=== PATIENT | female | born 1965 | race Caucasian/White ===

== ENCOUNTER 2023-01-24 10:16 | Outpatient (CLI) | payer OTHER, SELFPAY ==
--- NOTE | ~2023-01-24 | XR_ITS ---
EXAMINATION: XR knee LT 3V DATE: 01/24/2023 10:43 INDICATION: Left knee pain and swelling. TECHNIQUE: 3 views of left knee standing were obtained. COMPARISON: None. FINDINGS: There is a total left knee arthroplasty with patellar resurfacing in near-anatomic alignmen t. No fracture. No periprosthetic lucency to suggest loosening or infection. There is a moderate-size d knee joint effusion. IMPRESSION: 1. Total left knee arthroplasty in near-anatomic alignment. 2. Moderate-sized left knee joint effusion. Reviewed, dictated and finalized at location A.
== END 2023-01-24 10:17 | disposition home or self-care (01) ==
LOC: ANHIMG 10:22
PROVIDERS: PCP Physician Assistant; Visit Provider Physician Assistant
DX: M25.462 Effusion, left knee (principal)
CPT/HCPCS: 73562

== ENCOUNTER 2025-05-23 02:14 | Emergency (ER) | payer OTHER, SELFPAY ==
[2025-05-23] VITALS (19 sets, daily range): BP systolic 113–159; BP diastolic 78–97; PULSE 61–80; RESP 8–20; TEMP 36.4; O2SAT 94–100
--- NOTE | ~2025-05-23 | XR_ITS ---
EXAMINATION: XR chest 1V portable 05/23/2025 05:20 INDICATION: Hypoxia with sleep PROCEDURE: AP portable chest COMPARISON: No prior studies for comparison. FINDINGS: The lungs are clear. The cardiomediastinal silhouette is within normal limits. There are no pleural effusions. There is no pneumothorax suspected. There are calcified granulomas of the lef t lung. IMPRESSION: 1: NO ACUTE CARDIOPULMONARY DISEASE. Reviewed, dictated and finalized at location A.
[2025-05-23] MEDS: LACTATED RINGERS 1,000 ML 999 ML IV CONT (02:36)
[2025-05-23] MEDS: ONDANSETRON INJ 4 MG/2 ML VIAL IV PUSH (02:36)
[2025-05-23] MEDS: Please add drug allergy info to patient profile. 1 EACH XX (02:36)
[2025-05-23 02:44] LABS: Hematocrit 39.8 % (37.0-47.0); Hemoglobin 13.2 g/dL (12.0-15.0); Immature Granulocyte Percent A 0.2 % (0-0.5); Lymphocytes Absolute Auto 3.09 K/mm3 (0.9-3.2); Mean Corpuscular HGB Conc 33.2 g/dl (32-36); Mean Corpuscular Hemoglobin 30.8 pg (26-34); Mean Corpuscular Volume 93.0 fl (80-100); Nucleated Red Blood Cells Absolute Auto 0.000 K/mm3 (0.0-0.012); Nucleated Red Blood Cells Perc 0.0 % (0.0-0.2); Platelet Count Result 365 k/mm3 (150-375); Red Blood Count 4.28 M/mm3 (4.2-5.4); White Blood Count 8.6 K/mm3 (4.5-10.0)
[2025-05-23 02:57] LABS: Alanine Aminotransferase 27 U/L (6-35); Albumin Level 4.6 g/dL (3.5-5.1); Alkaline Phosphatase 84 U/L (38-126); Anion Gap 12 mmol/L (4-12); Aspartate Amino Transferase 36 U/L (14-36); Bilirubin,Total 0.4 mg/dL (0.2-1.3); Blood Urea Nitrogen 16 mg/dL (7-17); Calcium 9.7 mg/dL (8.4-10.2); Carbon Dioxide 19 mmol/L (22-30); Chloride 104 mmol/L (98-107); Estimated CRCL calculation 74 ml/min; Estimated Glomerular Filt Rate > 60; Glucose 105 mg/dL (65-110); Lipase 92 U/L (23-300); Potassium 3.9 mmol/L (3.4-5.0); Sodium 135 mmol/L (137-145); Total Protein 7.6 g/dL (6.3-8.2)
[2025-05-23 04:21] LABS: Add Urine Microscopic? YES; Appearance Urine Clear (Clear); Glucose Urine UA Negative (Negative); Leukocyte Esterase Ur Negative LEU/UL (Negative); Nitrate Urine Negative (Negative); Non Pathogenic Casts 0-2; Specific Grav Ur 1.012 (1.001-1.035)
--- OUTSIDE RECORDS SUMMARY | 2025-05-23 04:37 | XMS_ITS | Clinical Summary ---
Author Organization [facility] Address [address] [place] [address] Care Team Providers Care Dermatology Procedural Physician Name Role Phone Hafsa Madera PA-C Primary Care Provider [phone] Source Comments [facility],non-owned Affiliates and Associated Physician Practices is amultiple site organization consisting of ambulatory clinics and hospital sitesin [place], [place], [place] and [place]. This disclosure is being madepursuant to the Care Everywhere program and may not contain all information available regarding this patient. Last updated 18.[facility] Social History Tobacco Use Types Packs/Day Years Used Date Smoking Tobacco: Never Assessed Comments Unknown Sex and Gender Information Value Date Recorded Sex Assigned at Female 03/13/2023 10:12 AM CDT Legal Sex Female 10:09 AM CDT Gender Identity Female 03/13/2023 10:12 AM CDT Sexual Orientation Straight 03/13/2023 10 :12 AM CDT Plan of Treatment Health Maintenance Due Date Last Done Comments COLOGUARD (AGES 45-75) - COL ON CA SCREENING 1967 COLON MONITORING 1967 COLONOSCOPY - COLON CA SCREENING 1967 CT COLONOGRAPHY - COLON CA SCREENING 1967 Colorectal Cancer Screening 1967 FIT - COLON CA SCREENING 1967 FLEX SIG - COLON CA SCREENING 1967 LIPID TESTING 1967 MAMMOGRAM 1967 HIV SCREENING 1982 HEPATITIS C SCREENING 01/22/1985 DTAP/TDAP/TD VACCINES (1 - Tdap) 1986 HEPATITIS B VACCINE (1 of 3 - 19+ 3-dose series) 1986 PAP SMEAR 01/28/1988 PNEUMOCOCCAL VACCINE 50+ (1 of 1 - PCV) 2017 ZOSTER VACCINE (1 of 2) 2017 COVID-19 VACCINE (2023-2 5 season) 2024 DEPRESSION SCREENING 10/20/2024 INFLUENZA VACCINE (#1) 2025 HIB VACCINE Aged Out No longer eligi ble based on patient's age to complete this topic HPV VACCINE Aged Out No longer eligi ble based on patient's age to complete this topic MENINGOCOCCAL (Group B) VACC INE SHARED DECISION-MAKING Aged Out No longer eligibl e based on patient's age to complete this topic MENINGOCOCCAL GROUPS A/C/Y/W VACCINE Aged Out No longer eligible b ased on patient's age to complete this topic Insurance [facility] Care Teams Dermatology Procedural Physician Relationship Specialty Start Date End Date Hafsa Madera PA-C [address] [place] [phone] PCP - General 08/19/23
--- OUTSIDE RECORDS SUMMARY | 2025-05-23 04:37 | XMS_ITS | Continuity of Care Document ---
Author Organization [facility] Address [address] [place] [phone] Phone Care Team Providers Care Energy Auditor Name Role Phone Kun SMITHErasmoen Unavailable Unavailable Allergies, Adverse Reactions, Alerts Substance Reaction Status Criticality Sulfa (Sulfonamide Antibiotics) Active No Information Advance Directives Directive Yes / No Effective Date File Name No Information Encounters Encounter Description Practice Location Reason(s) For Visit Diagnoses Date Provider Providers Copied on Encounter [facility], [facility] [place], [place], [id number] , tel: [phone] [facility] Location Encounter for examination of eyes and vision with abnormal findingsAge-related nuclear cataract, bilateralPresbyopiaOt her chorioretinal scars, right eyeHypermetropia, bilateral Oct-2 1 Kun Michael. [address] [place], [facility], [place]. tel: [phone] [facility], [address] [place] [address], [id number] , tel: [phone] [facility] Location PresbyopiaEncounter for examination of eyes and vision with abnormal findings Oct-1 -201 9 RCM Rendering . [address] [place] [address], [id number], [place]. tel: [phone] Family History Family Member Type Diagnosis Age At Onset Problem (finding) Fhx of cataract Mother Problem (finding) Fhx of glaucoma Payers Payer name Insurance type Covered alliance party ID Authoriza tion(s) No Information Social History Type Description Quantity Date Captured Comments Alcohol Use Details Unknown Caffeine Use Details Unknown Tobacco Use Status Never smoker (Never Smoked) Smoking Status Never smoker (Never Smoked) Non-Smoking Tobacco Use Details : No Details Available : No Details Available Sex Female Chief Complaint And Reason For Visit No Information Reason For Referral Reason For Referral No Information History Of Present Illness Encounter Date Complaint History Of Prese nt Illness No Information Functional Status Date Functional Assessmen t No Information Instructions Date Instruction Additional Infor berto Impression/Plan Related to Routi ne examination with abnormal findings. Impression/Plan Related to [place] revealed cataract. Impression/Plan Related to [place] revealed a retinal scar. Impression/Plan Related to Refra ctive testing reveals hyperopia (farsightedness). Impression/Plan Related to Refra ctive testing reveals [...]
--- NOTE | 2025-05-23 04:38 | ED.ALCOHOL ---
HPI - Alcohol General Chief Complaint: Alcohol Stated Complaint: N/V; ETOH+ Time Seen by Provider: 05/23/25 04:25 Source: patient, EMS and RN notes reviewed Mode of arrival: EMS Limitations: no limitations History of Present Illness HPI narrative: Patient presents with nausea, 3 episodes of nonbloody emesis, dizziness. The symptoms started after drinking alcohol. She reports drinking from approximately 7:00 p.m. to 11:00 p.m. while out at [facility]. She believes she had 3 total room in cranberry juice drinks and possibly a Tequila shot. Patient does not drink regularly and has been awhile. Reports that it is possible that she was already a bit dehydrated she been out mowing her lawn earlier in the day and possibly not staying hydrated enough however she used to live in [place]. Patient reports that she started to feel some her symptoms she was still at the [facility] location and the poultry dressing worker gave her some water and chips. She later vomited these up in her toilet. She states that usually if she got sick after drinking she would drop in feel better but she did not feel better after vomiting and thus presented. Patient was given IV fluids and Zofran arrival emergency department and the time of my assessment she states she is feeling better now. Was noted that she became hypoxic while sleeping, desaturating to the mid 60s by report from RN. Patient denies any chest pain or shortness of breath. She states that she smoked for 18 years but quit 22 years ago. Has a primary care provider, Rae Madera. Related Data Allergies Allergy/AdvReac Type Severity Reaction Status Date / Time Sulfa (Sulfonamide Allergy Mild Rash Verified 05/23/25 02:35 Antibiotics) PMFSH Past Medical History Medical History Bipolar disorder, unspecified Anxiety Social History Social History Social History: Previously lived in [place] Years smoked: 18 Smoking status: Former smoker Smoking end date: 10/20/02 Alcohol intake: current Alcohol use details: occasional Exam Narrative: GENERAL: Well-appearing, well-nourished, and in no acute distress. HEAD: Normocephalic, atraumatic. EYES: Non injected, non icteric ENT: Nares clear, no rhinorrhea or epistaxis. Gross auditory acuity intact. NECK: Supple. No meningismus. CHEST: Speaking in full sentences. No respiratory distress. Lungs clear to auscultation bilaterally without appreciable wheezes. Not diminished. Nonlabored. HEART: Regular rate and rhythm. . ABDOMEN: Soft, nondistended. No rigidity or guarding. Not peritoneal EXTREMITIES: Normal range of motion. No lower extremity edema. SKIN: Warm, dry, no rash. NEURO: No focal deficits. Alert and oriented. Answering questions. Following commands. Normal speech without aphasia or dysarthria. PSYCH: Normal mood and affect. Course Vital Signs Vital signs: Vital Signs Temperature 97.6 F 05/23/25 02:15 Pulse Rate 70 05/23/25 02:15 Respiratory Rate 18 05/23/25 02:15 Blood Pressure 159/97 H 05/23/25 02:15 Pulse Oximetry 100 05/23/25 02:15 Oxygen Delivery Room Air 05/23/25 02:15 Temperature 97.6 F 05/23/25 02:15 Pulse Rate 66 05/23/25 05:38 Respiratory Rate 13 05/23/25 05:38 Blood Pressure 119/82 05/23/25 05:38 Pulse Oximetry 94 05/23/25 05:38 Oxygen Delivery Room Air 05/23/25 02:15 MDM - Alcohol MDM Narrative Medical decision making narrative: Patient presents with symptoms nausea and 3 episodes of nonbloody emesis and feeling dizzy. Symptoms occurred after she had been drinking alcohol. She reports that she had at least 3 rum drinks and possibly a Tequila shot. Only drinks occasionally. Notes that previously if she or feeling symptomatic after drinking she would throw up and feel better but this did happen while at home. In the emergency department she is afebrile with vital signs initially notable for hypertension although resolved on reassessment. RN had requested IV fluids and Zofran based on their assessment which I approved before I was able to evaluate patient. At that time she is now asymptomatic. Microscopic hematuria on urinalysis but otherwise without signs of infection. Ethanol level 132. This makes legal sobriety approximately 4:30 a.m.. UDS negative. She is able to be titrated off oxygen and maintains saturation while awake, desaturates when she sleeps. Ortho stats are reviewed and appropriate. Patient is otherwise stable for discharge. I did advise that she follow-up with her primary care physician regarding possible sleep study and or possibly PFTs given her history smoking although no appreciable wheezes on exam today to suggest new diagnosis of COPD. Differential Diagnosis Differential diagnosis: Likely alcohol intoxication (w/ side effect), alcohol ketoacidosis and other (gastritis, dehydration) Lab Data Attestation: I reviewed the patient's lab results. Lab results narrative: Lipase normal CBC unremarkable 05/23/25 02:33 05/23/25 02:33 Labs: Lab Results 05/23/25 05/23/25 Range/Units 02:33 04:07 WBC 8.6 (4.5-10.0) K/mm3 RBC 4.28 (4.2-5.4) M/mm3 Hgb 13.2 (12.0-15.0) g/dL Hct 39.8 (37.0-47.0) % MCV 93.0 (80-100) fl MCH 30.8 (26-34) pg MCHC 33.2 (32-36) g/dl RDW 11.7 (11.5-14.5) % Plt Count 365 (150-375) k/mm3 MPV 9.5 (7.4-10.4) fl Immature Gran % (Auto) 0.2 (0-0.5) % Neut % (Auto) 56.0 (45.5-73.1) % Lymph % (Auto) 36.1 (18.3-44.2) % [place] % (Auto) 6.7 (2.6-8.5) % Eos % (Auto) 0.2 (0-4.4) % Baso % (Auto) 0.8 (0.2-1.2) % Lymph # (Auto) 3.09 (0.9-3.2) K/mm3 [place] # (Auto) 0.6 (0.1-0.6) K/mm3 Eos # (Auto) 0.0 (0-0.3) K/mm3 Baso # (Auto) 0.1 (0.0-0.1) K/mm3 Abs Immat Gran (auto) 0.02 (0.00-0.031) K/mm3 Absolute Neuts (auto) 4.8 (1.3-6.7) K/mm3 Absolute Nucleated RBC 0.000 (0.0-0.012) K/mm3 Nucleated RBC % 0.0 (0.0-0.2) % Sodium 135 L (137-145) mmol/L Potassium 3.9 (3.4-5.0) mmol/L Chloride 104 (98-107) mmol/L Carbon Dioxide 19 L (22-30) mmol/L Anion Gap 12 (4-12) mmol/L BUN 16 (7-17) mg/dL Creatinine 0.72 (0.7-1.0) mg/dL Estim Creat Clear Calc 74 ml/min Estimated GFR > 60 (59 - ) Glucose 105 (65-110) mg/dL Calcium 9.7 (8.4-10.2) mg/dL Total Bilirubin 0.4 (0.2-1.3) mg/dL AST 36 (14-36) U/L ALT 27 (6-35) U/L Alkaline Phosphatase 84 (38-126) U/L Total Protein 7.6 (6.3-8.2) g/dL Albumin 4.6 (3.5-5.1) g/dL Lipase 92 (23-300) U/L Urine Color Yellow (Yellow) Urine Appearance Clear (Clear) Urine pH 8.0 (5.0-9.0) Ur Specific [place] 1.012 (1.001-1.035) Urine Protein Negative (Negative) mg/dL Urine Glucose (UA) Negative (Negative) mg/dL Urine Ketones Negative (Negative) mg/dL Ur Blood (Man) Trace (Negative) Urine Nitrate Negative (Negative) Urine Bilirubin Negative (Negative) Urine Urobilinogen 0.2 (<2.0) mg/dL Leukocyte Esterase Rfl Negative (Negative) RAFAELA/UL Urine RBC 3-5 H (0-2) /hpf Urine WBC 0-5 (0-3) /hpf Ur Squamous Epith Cells None seen (Few) /hpf Urine Bacteria None seen /hpf Urine Casts 0-2 Urine Opiates Screen Negative (Negative) Urine Methadone Screen Negative (Negative) Ur Barbiturates Screen Negative (Negative) Ur Phencyclidine Scrn Negative (Negative) Ur Amphetamine Screen Negative (Negative) U Benzodiazepines Scrn Negative (Negative) Urine Cocaine Screen Negative (Negative) U Cannabinoids Screen Negative (Negative) Ethyl Alcohol 132 (<10) mg/dL Imaging Data Attestation: I personally reviewed and interpreted this imaging study as follows: My impression: Hyperinflated lungs on my independent interpretation of chest x-ray Radiologist's impression: ITS Impressions Chest X-Ray 05/23/25 05:42 IMPRESSION: 1: NO ACUTE CARDIOPULMONARY DISEASE. ECG Data EKG #1: Attestation: I personally reviewed and interpreted this ECG as follows: ECG completion date: 05/23/25 ECG completion time: 05:11 Interpretation: Normal sinus rhythm at a rate of 63 beats per minute. WV interval 172. QRS 93. QT/QTC 447/459. Good R-wave progression across the precordial leads. No T-wave inversions. Normal axis. Normal EKG. Discharge Plan Discharge Clinical Impression: Alcoholic intoxication, Nausea, Microscopic hematuria, Hypoxia, sleep related Patient Disposition: Home Condition: Stable Instructions: Antibiotic Form, Alcohol Intoxication (DC), Acute Nausea and Vomiting (DC), Hypoxia (ED) Additional Instructions: Reassured that you are feeling better in your workup was generally without significant abnormalities. If she continues to be nauseated or have vomiting today, you can use the oral disintegrating tablets of Zofran. Rest and maintain your hydration. Follow-up with your primary care provider, especially given that it was noted that your oxygen saturation went down while you are sleeping. You may benefit from undergoing PFTs (pulmonary function test) given your previous history of smoking versus sleep study to evaluate for sleep apnea. Return to the emergency department any new or worsening symptoms. Patient Language: Macanese Prescriptions: New ondansetron 4 mg tablet,disintegrating 4 mg PO Q8H PRN (Reason: nausea and vomiting) Qty: 7 0RF Follow-up/Referrals: Santy,SARA Pereyra [Primary Care Provider] - Stand Alone Forms: Work/School Release IP Time of Disposition: 05:49
[2025-05-23 04:40] LABS: Cannabinoid Screen Urine Negative (Negative)
--- NOTE | 2025-05-23 04:55 | ECG_ITS ---
Test Date: 2025-05-23 05:11:04 Measurements Intervals [place] Rate: 63 P: 73 WV: 172 QRS: 73 QRSD: 93 T: 62 QT: 447 QTc: 459 Interpretive Statements SINUS RHYTHM MINIMAL Q WAVES- INF/LAT LEADS BASELINE ARTIFACT- I, AVR, AVL BORDERLINE ECG No previous ECG available for comparison Electronically Signed On 05-23-2025 06:27:43 CDT by Gomez Owens D.O.
== END 2025-05-23 06:08 | disposition home or self-care (01) ==
PROVIDERS: Emergency Provider Student in an Organized Health Care Education/Training Program; PCP Physician Assistant
DX: R31.21 Asymptomatic microscopic hematuria (principal); R11.0 Nausea; G47.34 Idiopathic sleep related nonobstructive alveolar hypoventilation; F10.129 Alcohol abuse with intoxication, unspecified; Y90.6 Blood alcohol level of 120-199 mg/100 ml; F31.9 Bipolar disorder, unspecified; F41.9 Anxiety disorder, unspecified
CPT/HCPCS: 36415; 71045; 80053; 80307; 81001; 82077; 83690; 85025; 93005; 96361; 96374; 99284; J2405; J7120

== ENCOUNTER 2025-10-02 15:54 | Emergency (ER) | payer OTHER, SELFPAY ==
--- OUTSIDE RECORDS SUMMARY | 2022-10-18 05:18 | XMS_ITS | Continuity of Care Document ---
Author Organization [facility] Address [address] [place] [phone] Phone Care Team Providers Care Tariff Clerk Name Role Phone RCM, Rendering Unavailable Unavailable Allergies, Adverse Reactions, Alerts Substance Reaction Status Criticality Sulfa (Sulfonamide Antibiotics) Active No Information Advance Directives Directive Yes / No Effective Date File Name No Information Encounters Encounter Description Practice Location Reason(s) For Visit Diagnoses Date Provider Providers Copied on Encounter [facility], [address] [place] [address], [id number] , tel: [phone] [facility] Location No Information Dec-3 0 2 RCM Rendering . [address] [place] [address], [id number], [place]. tel: [phone] [facility], [address] [place] [address], [id number] , [place] tel: [phone] [facility] Location Encounter for examination of eyes and vision with abnormal findingsAge-related nuclear cataract, bilateralPresbyopiaOt her chorioretinal scars, right eyeHypermetropia, bilateral Oct-2 - 1 Kun Michael. [address] [place], [address], [place]. tel: [phone] [facility], [address] [place] [address], [id number] , [place] tel: [phone] [facility] Location PresbyopiaEncounter for examination of eyes and vision with abnormal findings Oct-1 -201 9 RCM Rendering . [address] [place] [address], [id number], [place]. tel: [phone] Family History Family Member Type Diagnosis Age At Onset Problem (finding) Fhx of cataract Mother Problem (finding) Fhx of glaucoma Payers Payer name Insurance type Covered green party ID Authoriza tion(s) No Information Social History Type Description Quantity Date Captured Comments Sex Female Smoking Status No Information Chief Complaint And Reason For Visit No Information Reason For Referral Reason For Referral No Information History Of Present Illness Encounter Date Complaint History Of Prese nt Illness No Information Functional Status Date Functional Assessmen t No Information Instructions Date Instruction Additional Infor mation Oct- Impression/Plan Related to Routi ne examination with abnormal findings. Oct- Impression/Plan Related to [place] revealed cataract. Jul- Impression/Plan Related to [place] revealed a retinal scar. Jul- Impression/Plan Related to Refra ctive testing reveals hyperopia (farsightedness). Jul- Impression/Plan Related to Refra ctive testing reveals presbyopia. Impression/Plan Related to Locat ion 1: OD\nLocation 2: OS\nPriority: 3 Impression/Plan Related to Locat ion 1: OD\nLocation 2: OS\nPriority: 2 Impression/Plan Related to Locat ion 1: RUL\nLocation 2: LANDRY\nPriority: 3 Impression/Plan Related to Locat ion 1: OD\nLocation 2: OS\nPriority: 3 \nSeverity 1: 2 \nSeverity 2: 2 Assessments Type Assessment Date No Information Patient Care Teams Name Effective Dates (start - stop) Status Members No Information
--- NOTE | ~2025-10-02 | XR_ITS ---
EXAMINATION: XR chest 2V, 10/02/2025 17:17 [employer] HISTORY: productive cough X 1WEEK COMPARISON: No comparisons available. Technique: 2 views obtained. Findings: The lungs are clear, no effusion. No pneumothorax. Heart is normal size. Mediastinal and hilar contours are within normal limits. Bony thorax no acute abnormality. Impression: No acute cardiopulmonary abnormality. Reviewed, dictated and finalized at location P. 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
[2025-10-02 15:55] VITALS: BP 167/96; PULSE 66; RESP 20; TEMP 36.6; O2SAT 93
--- OUTSIDE RECORDS SUMMARY | 2025-10-02 15:56 | XMS_ITS | Clinical Summary ---
Author Organization [facility] Address [address] [place] [address] Care Team Providers Care Music Instructor Name Role Phone Hafsa Madera PA-C Primary Care Provider Source Comments [facility],non-owned Affiliates and Associated Physician Practices is amultiple site organization consisting of ambulatory clinics and hospital sitesin [place], [place], [place] and [place]. This disclosure is being madepursuant to the Care Everywhere program and may not contain all information available regarding this patient. Last updated 18.[facility] Social History Tobacco Use Types Packs/Day Years [...] 2017 ZOSTER VACCINE (1 of 2) 2017 DEPRESSION SCREENING 10/20/2024 COVID-19 VACCINE (1 - 2024-2 6 season) 2025 INFLUENZA VACCINE (#1) 2025 HIB VACCINE Aged [...] patient's age to complete this topic Insurance [facility] Care Teams Music Instructor Relationship Specialty Start Date End Date Hafsa Madera PA-C [address] [place] [phone] PCP - General 08/19/23
--- NOTE | 2025-10-02 17:01 | ED_ITS ---
HPI - General Adult General Chief complaint: Upper Respiratory Infection Stated complaint: sick for 3 weeks, chest congestion Time Seen by Provider: 10/02/25 16:01 History of Present Illness HPI narrative: 60-year-old female presenting with concerns for URI for three weeks. She states her symptoms started as a runny nose then it progressed to sinus congestion and headaches and now she is reporting that it has gone to her chest. Present symptoms include a productive cough with green sputum, dysphagia, and hoarseness. She states that she does not feel short of breath but that sometimes she struggles to take a deep breath because she is coughing so much. Denies fevers/chills, abdominal pain, or nausea/vomiting/diarrhea. Denies history of smoking or COPD/asthma. Related Data Allergies Allergy/AdvReac Type Severity Reaction Status Date / Time Sulfa (Sulfonamide Allergy Mild Rash Verified 05/23/25 02:35 Antibiotics) Review of Systems 2 Review of Systems: All systems reviewed & are unremarkable except as noted in HPI and below PMFSH Past Medical History Medical History Bipolar disorder, unspecified Anxiety Social History Social History Social History: Previously lived in [place] Years smoked: 18 Smoking status: Former smoker Smoking end date: 10/20/02 Alcohol intake: current Alcohol use details: occasional Exam 2 Narrative: GENERAL: No acute distress. Voice hoarseness.Cough. HEAD: Normocephalic, atraumatic. EYES: PERRLA and EOMI. ENT: Nares clear, no rhinorrhea or epistaxis. Mucous membranes moist. Oropharynx without tonsillar hypertrophy exudate or other lesions. Bilateral TMs pearly schmidt non-bulging NECK: Supple. No adenopathy or masses. No carotid bruits or JVD CHEST: Clear to auscultation. No respiratory distress. No wheezes rales or rhonchi HEART: Regular rate and rhythm. No murmur heard. Normal peripheral pulses. ABDOMEN: Soft, nontender, nondistended, normal active bowel sounds. EXTREMITIES: Normal range of motion. No edema. SKIN: Warm, dry, no rash. NEURO: No focal deficits. Alert and oriented x3. PSYCH: Normal mood and affect Course Vital Signs Vital signs: Vital Signs Temperature 97.8 F 10/02/25 15:55 Pulse Rate 66 10/02/25 15:55 Respiratory Rate 20 10/02/25 15:55 Blood Pressure 167/96 H 10/02/25 15:55 Pulse Oximetry 93 10/02/25 15:55 Oxygen Delivery Room Air 10/02/25 15:55 Temperature 97.8 F 10/02/25 15:55 Pulse Rate 66 10/02/25 15:55 Respiratory Rate 20 10/02/25 15:55 Blood Pressure 167/96 H 10/02/25 15:55 Pulse Oximetry 93 10/02/25 15:55 Oxygen Delivery Room Air 10/02/25 15:55 MDM MDM Narrative Medical decision making narrative: 60-year-old female presenting with concerns for URI for three weeks. She states her symptoms started as a runny nose then it progressed to sinus congestion and headaches and now she is reporting that it has gone to her chest. Present symptoms include a productive cough with green sputum, dysphagia, and hoarseness. She states that she does not feel short of breath but that sometimes she struggles to take a deep breath because she is coughing so much. Denies fevers/chills, abdominal pain, or nausea/vomiting/diarrhea. Denies history of smoking or COPD/asthma. Upon my initial assessment patient appears nontoxic with stable vitals. Lab work is unremarkable. COVID, flu, RSV negative. CXR without acute abnormalities. Due to the duration of patient's symptoms and productive cough with green sputum will plan to treat for uncomplicated pneumonia outpatient. Administered Tylenol. Patient notes that Tylenol never works for her. Patient agrees with discussion and after shared medical decision making agrees with plan of care. All questions were answered to the patient's satisfaction. The patient is appropriate for outpatient treatment and follow-up. Given reasons to return. Differential Diagnosis Differential Diagnosis: Differential diagnostic considerations for upper respiratory infection include upper respiratory infection, croup, otitis media, sinusitis, viral infection, bronchitis, influenza, pharyngitis, strep, uvulitis. Medical Records I have reviewed the following patient records and this information was taken into consideration when formulating the assessment and plan.: previous labs and previous ER visits Lab Data MDM Lab Attestation statement: I personally reviewed the patient's lab results. 10/02/25 16:59 10/02/25 16:59 Labs: Lab Results 10/02/25 Range/Units 16:59 WBC 9.4 (4.5-10.0) K/mm3 RBC 4.29 (4.2-5.4) M/mm3 Hgb 13.4 (12.0-15.0) g/dL Hct 39.9 (37.0-47.0) % MCV 93.0 (80-100) fl MCH 31.2 (26-34) pg MCHC 33.6 (32-36) g/dl RDW 11.6 (11.5-14.5) % Plt Count 380 H (150-375) k/mm3 MPV 9.3 (7.4-10.4) fl Immature Gran % (Auto) 0.4 (0-0.5) % Neut % (Auto) 49.8 (45.5-73.1) % Lymph % (Auto) 38.1 (18.3-44.2) % Baldwin % (Auto) 8.9 H (2.6-8.5) % Eos % (Auto) 2.1 (0-4.4) % Baso % (Auto) 0.7 (0.2-1.2) % Lymph # (Auto) 3.60 H (0.9-3.2) K/mm3 Baldwin # (Auto) 0.8 H (0.1-0.6) K/mm3 Eos # (Auto) 0.2 (0-0.3) K/mm3 Baso # (Auto) 0.1 (0.0-0.1) K/mm3 Abs Immat Gran (auto) 0.04 H (0.00-0.031) K/mm3 Absolute Neuts (auto) 4.7 (1.3-6.7) K/mm3 Absolute Nucleated RBC 0.000 (0.0-0.012) K/mm3 Nucleated RBC % 0.0 (0.0-0.2) % Sodium 136 L (137-145) mmol/L Potassium 3.6 (3.4-5.0) mmol/L Chloride 107 (98-107) mmol/L Carbon Dioxide 26 (22-30) mmol/L Anion Gap 3 L (4-12) mmol/L BUN 13 (7-17) mg/dL Creatinine 0.63 L (0.7-1.0) mg/dL Estim Creat Clear Calc 84 ml/min Estimated GFR > 60 (59 - ) Glucose 97 (65-110) mg/dL Calcium 9.2 (8.4-10.2) mg/dL Total Bilirubin 0.4 (0.2-1.3) mg/dL AST 26 (14-36) U/L ALT 20 (6-35) U/L Alkaline Phosphatase 106 (38-126) U/L Total Protein 7.4 (6.3-8.2) g/dL Albumin 4.0 (3.5-5.1) g/dL Influenza A (RT-PCR) Negative (Negative) Influenza B (RT-PCR) Negative (Negative) RSV (RT-PCR) Negative (Negative) SARS-CoV-2 RNA (RT-PCR) Negative (Negative) Imaging Data Attestation: I personally reviewed and interpreted this imaging study as follows: Radiologist's impression: ITS Impressions Chest X-Ray 10/02/25 17:27 Impression: No acute cardiopulmonary abnormality. Discharge Plan Discharge Clinical Impression: Upper respiratory infection, Pneumonia Patient Disposition: Home Condition: Stable Instructions: Antibiotic Form, Bacterial Pneumonia (ED), Cold Symptoms (ED) Additional Instructions: Return to the emergency department for worsening symptoms or any other concerns Remain well-hydrated and get plenty of rest. Take Tylenol or Motrin [id number] for pain as needed. Flonase for nasal congestion. Zyrtec for runny nose. Lozenges or Chloraseptic spray for sore throat. Take antibiotics as prescribed. Follow up with primary care doctor Patient Language: Cuban Prescriptions: New amoxicillin 500 mg tablet 500 mg PO TID Qty: 21 0RF No Action ondansetron 4 mg tablet,disintegrating 4 mg PO Q8H PRN (Reason: nausea and vomiting) Qty: 7 0RF Follow-up/Referrals: Santy,SARA Pereyra [Primary Care Provider, Unknown]
[2025-10-02] MEDS: ACETAMINOPHEN 500 MG TABLET 1000 MG PO (17:04)
[2025-10-02 17:07] LABS: Hematocrit 39.9 % (37.0-47.0); Hemoglobin 13.4 g/dL (12.0-15.0); Immature Granulocyte Percent A 0.4 % (0-0.5); Lymphocytes Absolute Auto 3.60 K/mm3 (0.9-3.2); Mean Corpuscular HGB Conc 33.6 g/dl (32-36); Mean Corpuscular Hemoglobin 31.2 pg (26-34); Mean Corpuscular Volume 93.0 fl (80-100); Nucleated Red Blood Cells Absolute Auto 0.000 K/mm3 (0.0-0.012); Nucleated Red Blood Cells Perc 0.0 % (0.0-0.2); Platelet Count Result 380 k/mm3 (150-375); Red Blood Count 4.29 M/mm3 (4.2-5.4); White Blood Count 9.4 K/mm3 (4.5-10.0)
[2025-10-02 17:36] LABS: Alanine Aminotransferase 20 U/L (6-35); Albumin Level 4.0 g/dL (3.5-5.1); Alkaline Phosphatase 106 U/L (38-126); Anion Gap 3 mmol/L (4-12); Aspartate Amino Transferase 26 U/L (14-36); Bilirubin,Total 0.4 mg/dL (0.2-1.3); Blood Urea Nitrogen 13 mg/dL (7-17); Calcium 9.2 mg/dL (8.4-10.2); Carbon Dioxide 26 mmol/L (22-30); Chloride 107 mmol/L (98-107); Estimated CRCL calculation 84 ml/min; Estimated Glomerular Filt Rate > 60; Glucose 97 mg/dL (65-110); Potassium 3.6 mmol/L (3.4-5.0); Sodium 136 mmol/L (137-145); Total Protein 7.4 g/dL (6.3-8.2)
[2025-10-02 17:41] LABS: Influenza A QL RT-PCR Negative (Negative); Influenza B QL RT-PCR Negative (Negative); RSV RNA, RT-PCR Negative (Negative); SARS-CoV-2 RNA PCR Negative (Negative)
== END 2025-10-02 18:12 | disposition home or self-care (01) ==
PROVIDERS: PCP Physician Assistant
DX: J18.9 Pneumonia, unspecified organism (principal); J06.9 Acute upper respiratory infection, unspecified; Z20.822 Contact with and (suspected) exposure to COVID-19; F31.9 Bipolar disorder, unspecified; F41.9 Anxiety disorder, unspecified; Z87.891 Personal history of nicotine dependence
CPT/HCPCS: 36415; 71046; 80053; 85025; 87637; 99283; A9270